=== PATIENT | female | born 1995 | race African-American/Black ===

== ENCOUNTER 2024-01-28 04:59 | Inpatient (IN) ==
[2024-01-28] MEDS: METOCLOPRAMIDE HCL INJ 5 MG/ML 2 ML VIAL IV STA (05:09)
[2024-01-28] MEDS: diphenhydrAMINE 50 MG/ML VIAL IV STA (05:09)
[2024-01-28] MEDS: SODIUM CHLORIDE 0.9% 1,000 ML IV ONE ×2 (05:10→05:32)
--- NOTE | 2024-01-28 05:14 | Emergency Department Note ---
ED Visit Note Alerted by nursing staff that they were concerned the patient is having a stroke. Patient is a 28-year-old female presenting with a headache. Patient states she has had a left-sided headache for the last 4 days. Reports the headache has not gotten better despite Tylenol and prednisone dosing. Patient is 8 weeks . She denies any vaginal bleeding or discharge. She states that the headache pain has gotten progressively worse over the last 4 days. Reports nausea and vomiting. Denies recent head injuries or chiropractic manipulation of her neck. She does report some left-sided weakness that has been present over the last 4 days and has gotten progressively worse. She denies any changes in vision. She reports this headache feels similar to her previous migraines, but reports it is more intense and has not gone away despite her normal treatments. Denies any chest pain or shortness of breath. Denies any fevers. On examination, the patient has left lower facial droop. She is significantly weaker in her left upper extremity as compared to her right. She has droop in both the left upper and left lower extremity. Patient is not a TNK candidate, given her last known well was 96 hours ago. I did discuss obtaining CT imaging with contrast with the patient. However, she reports she has an iodine allergy. She will go for Noncon CT scan of the head for further evaluation to rule out intracranial hemorrhage. .
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
[2024-01-28] MEDS: MAGNESIUM SULFATE / D5W 1 GM/100 ML BAG IV STA (05:30)
[2024-01-28 05:33] LABS: Basophils # (auto) 0.01 K/uL (0.00-0.20); Basophils % (auto) 0.2 %; Eosinophils # (auto) 0.02 K/uL (0.00-0.50); Eosinophils % (auto) 0.3 %; Hematocrit (blood only) 41.7 % (37.0-47.0); Hemoglobin 14.5 g/dl (12.0-16.0); Immature Granulocytes # (auto) 0.02 K/uL (0.01-0.20); Immature Granulocytes % (auto) 0.3 %; Lymphocytes # (auto) 2.45 K/uL (1.20-3.40); Lymphocytes % (auto) 42.5 %; Mean Corpuscular Hemoglobin 31.4 pg (25.0-34.0); Mean Corpuscular Hgb Conc 34.8 g/dL (32.0-36.0); Mean Corpuscular Volume 90.3 fL (80.0-100.0); Mean Platelet Volume 9.3 fL (9.4-12.4); Monocytes # (auto) 0.45 K/uL (0.11-0.59); Monocytes % (auto) 7.8 %; Neutrophils # (auto) 2.81 K/uL (1.40-6.50); Neutrophils % (auto) 48.9 %; Platelet Count 223 K/uL (130-400); RDW Coefficient of Variation 12.2 % (11.5-14.5); RDW Standard Deviation 39.8 fL (36.4-46.3); Red Blood Count 4.62 M/uL (4.20-5.40); White Blood Count 5.76 K/ul (4.8-10.8)
--- NOTE | 2024-01-28 05:39 | CT Scan Report ---
Exam(s): CT HEAD Without Contrast EXAM: CT Head Without Intravenous Contrast CLINICAL HISTORY: Reason for exam: headache; L sided weakness. TECHNIQUE: Axial computed tomography images of the head/brain without intravenous contrast. Automated exposure control was utilized for the study. A dose lowering technique was utilized adhering to the principles of ALARA. COMPARISON: 01/24/24 FINDINGS: Brain: Unremarkable. No hemorrhage. No significant white matter disease. No edema. Ventricles: Unremarkable. No ventriculomegaly. Bones/joints: Unremarkable. No acute fracture. Soft tissues: Unremarkable. Sinuses: Unremarkable as visualized. No acute sinusitis. Mastoid air cells: Unremarkable as visualized. No mastoid effusion. IMPRESSION: Normal head/brain CT. Communications: Call Doctor Stroke Electronically signed by: Marcellus Velasco MD 01/28/24 05:38 AM
[2024-01-28 05:48] LABS: Albumin Level 4.4 gm/dl (3.4-5.0); Anion Gap 9 (3-11); Bilirubin,Total 0.3 mg/dl (0.2-1.0); Calcium 9.4 mg/dl (8.6-10.3); Carbon Dioxide 25 mmol/L (21-32); Chloride 101 mmol/L (98-107); Magnesium 1.8 mg/dl (1.7-2.4); Potassium 3.4 mmol/L (3.5-5.1); Sodium 135 mmol/L (136-145)
[2024-01-28 05:49] LABS: Alanine Aminotransferase 8 U/L (7-52); Albumin Globulin Ratio 1.5 (0.9-2); Alkaline Phosphatase 40 U/L (34-104); Aspartate Aminotransferase 11 U/L (13-39); BUN Creatinine Ratio 19.5 (10-20); Blood Urea Nitrogen 8 mg/dl (6-23); Creatinine Clr Calc Pharmacy 176.4 ml/min; Est GFR (African American) > 150.0 ml/min; Est GFR (Non-African American) 140.6 ml/min; Globulin 2.9 gm/dl (2.5-4.0); Glucose 82 mg/dl (70-99(Fasting)); Lipase 10 U/L (11-82); Total Protein 7.3 gm/dl (6.0-8.3)
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
[2024-01-28 07:25] LABS: Adenovirus PCR Not Detected (NotDetected); Bordetella parapertussis PCR Not Detected (NotDetected); Bordetella pertussis PCR Not Detected (NotDetected); Chlamydia pneumoniae PCR Not Detected (NotDetected); Coronavirus 229E PCR Not Detected (NotDetected); Coronavirus CoV-2 (COVID19)PCR Not Detected (NotDetected); Coronavirus HKU1 PCR Not Detected (NotDetected); Coronavirus NL63 PCR Not Detected (NotDetected); Coronavirus OC43PCR Not Detected (NotDetected); Human Metapneumovirus PCR Not Detected (NotDetected); Influenza A PCR Not Detected (NotDetected); Influenza B PCR Not Detected (NotDetected); Mycoplasma pneumoniae PCR Not Detected (NotDetected); Parainfluenza Virus 1 PCR Not Detected (NotDetected); Parainfluenza Virus 2 PCR Not Detected (NotDetected); Parainfluenza Virus 3 PCR Not Detected (NotDetected); Parainfluenza Virus 4 PCR Not Detected (NotDetected); Respiratory Syncytial VirusPCR Not Detected (NotDetected); Rhinovirus/Enterovirus PCR Not Detected (NotDetected)
[2024-01-28 07:37] LABS: Appearance Urine Clear (Clear); Bilirubin Urine Negative (Negative); Blood Urine Negative (Negative); Color Urine Yellow; Glucose Urine UA Negative (Negative); Ketones Urine 1+ (Negative); Leukocyte Esterase Urine Negative (Negative); Nitrite Urine Negative (Negative); Protein Urine Negative (Negative); Specific Gravity Urine 1.007 (1.000-1.030); Urobilinogen Urine Negative (Negative)
[2024-01-28] MEDS ORDERED: DEXAMETHASONE SOD INJ 4 MG/ML VIAL IV SCH (09:00)
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
[2024-01-28] MEDS: POTASSIUM CHLORIDE 20 MEQ in LACTATED RINGER'S 1,000 ML IV SCH (09:17)
[2024-01-28] MEDS: ACETAMINOPHEN 500 MG TAB PO SCH (09:18)
[2024-01-28] MEDS: MAGNESIUM SULFATE / D5W 1 GM/100 ML BAG IV ONE (09:18)
[2024-01-28] MEDS: dexAMETHasone 4 MG in SYRINGE 0 ML IV SCH (09:19)
--- NOTE | 2024-01-28 11:28 | Electroencephalogram ---
EEG Procedure Note Date of Service January 28, 2024 Start / End Times Start Time: 10:56 AM End Time: 11:16 AM Referring Physician Yun History Seizure-like episode Home Medication List Medication Instructions Recorded Confirmed Type ondansetron HCl 4 mg tablet 4 mg PO Q8 PRN Nausea And Vomiting 01/24/24 01/24/24 History prednisone 20 mg tablet 20 mg PO DAILY 12 days #24 tabs 01/24/24 Rx Inpatient Medication List Acetaminophen (Acetaminophen 500 Mg Tab) 1,000 mg PO Q8H SELMA Stop: 02/27/24 08:13 Last Admin: 01/28/24 09:18 Dose: 1,000 mg Documented By: RIANNA Potassium Chloride 20 meq/ (Lactated Ringer's) 1,010 mls @ 125 mls/hr IV .Q8H5M SELMA Stop: 01/29/24 00:30 Last Admin: 01/28/24 09:17 Dose: 125 mls/hr Documented By: RIANNA Dexamethasone 4 mg/ Syringe 1 mls @ 1 mls/min IV DAILY SELMA Stop: 02/27/24 08:59 Last Admin: 01/28/24 09:19 Dose: 1 mls/min Documented By: RIANNA Discontinued Medications Diphenhydramine HCl (Diphenhydramine 50 Mg/Ml Vial) 50 mg IV NOW STA Stop: 01/28/24 05:03 Last Admin: 01/28/24 05:09 Dose: 50 mg Documented By: PAOLA Sodium Chloride (Nss) 1,000 mls @ 999 mls/hr IV .Q1H1M ONE Stop: 01/28/24 06:02 Last Infusion: 01/28/24 07:53 Dose: Infused Documented By: Admin: 01/28/24 05:10 Dose: 999 mls/hr Documented By: PAOLA Sodium Chloride (Nss) 1,000 mls @ 999 mls/hr IV .Q1H1M ONE Stop: 01/28/24 06:21 Last Infusion: 01/28/24 07:53 Dose: Infused Documented By: Admin: 01/28/24 05:32 Dose: 999 mls/hr Documented By: PAOLA Magnesium Sulfate/Dextrose (Magnesium Sulfate / D5w) 1 gm in 100 mls @ 100 mls/ hr IV NOW STA Stop: 01/28/24 06:20 Last Infusion: 01/28/24 06:32 Dose: Infused Documented By: Admin: 01/28/24 05:30 Dose: 100 mls/hr Documented By: PAOLA Magnesium Sulfate/Dextrose (Magnesium Sulfate / D5w) 1 gm in 100 mls @ 50 mls/hr IV ONE ONE Stop: 01/28/24 10:13 Last Infusion: 01/28/24 11:20 Dose: Infused Documented By: Admin: 01/28/24 09:18 Dose: 50 mls/hr Documented By: RIANNA Metoclopramide HCl (Metoclopramide Hcl Inj 5 Mg/Ml 2 Ml Vial) 10 mg IV NOW STA Stop: 01/28/24 05:03 Last Admin: 01/28/24 05:09 Dose: 10 mg Documented By: PAOLA Description This is a 21 electrode EEG with a single channel dedicated to limited EKG. The electrodes were placed in accordance with the International 10-20 system. There is a posterior dominant rhythm of 10 Hz which is symmetrically distributed and attenuates with eye opening. There is a normal anterior to posterior organization. Photic stimulation is unremarkable. Hyperventilation is not performed. There is a symmetric frontal beta rhythm. There is IV drip and movement artifact. There is no focal slowing. There are no epileptiform abnormalities. Interpretation Normal-appearing awake/drowsy EEG. [facility] EEG Procedure Codes Indication for Procedure (1) Seizure: Neurology Neurology: 95774 EEG include record awake & drowsy
[2024-01-28] MEDS: ONDANSETRON INJ 2 MG/ML 2 ML VIAL IV PRN (13:48)
--- NOTE | 2024-01-28 13:53 | Hospitalist Progress Note ---
Date of Service January 28, 2024 Assessment & Plan (1) Intractable migraine: Plan: Patient with persistent migraine ongoing for 5-6 days. Left sided numbness/tingling and weakness as well. Complicated migraine vs TIA/CVA. Patient is 8 weeks which limits some treatment options Biofire negative, lyme screen negative -Tylenol 1gm PO TID -Zofran PRN -Magnesium 1gm IV x 1 -Cold compresses -Dexamethasone 4mg IV qAM -Neurology consultation - brain MRI - no acute findings - EEG WNL Check MRV - received IV fluids x 2 L (2) Left-sided weakness: Plan: Complex migraine vs TIA/CVA vs seizure activity . Patient denies neurologic symptoms with prior migraine -MRI brain WITHOUT contrast: pending -Neurology consultation appreciated (3) Supervision of normal intrauterine in multigravida: Plan: Noted. Patient at 9 weeks. 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 If any vaginal bleeding, ultrasound for viability. Discussed with Dr. Malcolm, neurology Plan Dispo: Continued inpatient stay awaiting results of neurology testing DVT proh: SCDs, encourage ambulation Admission and Anticipated Discharge Date Admission Date: January 28, 2024 Supervising Physician Co-Signing Physician Notes PA Supervision Note: I did not personally see or examine the patient today, but I verified all harvey points of RYAN Bridges's assessment and plan with the following exceptions/additions: None Subjective Seen earlier this morning, resting in bed. Still describes left frontal headache, with spots in her vision on her left eye. Pain is slightly improved since admission Minimal appetite but nausea was controlled at the time Telemetry sinus rhythm in the 80s Review of Systems Review of Systems: All systems reviewed & are unremarkable except as noted in Subjective Physical Exam Physical Exam: General: NAD, VS as above Resp: normal respiratory effort, lungs clear to auscultation CV: RRR, no murmur, Abd: normal bowel sounds, non tender, soft Extremities: Moves all extremities, reports different sensation to left forehead and cheek area. 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 left- sided facial droop Neuro: A&O x3, Skin: intact, no lesions noted Results & Data Results & Data Vital Signs (Past 12 Hours) Vital Signs Temp Pulse Pulse Pulse Resp BP BP 01/28/24 12:20 36.9 C 95 H 16 112/64 01/28/24 09:57 87 01/28/24 08:16 36.7 C 96 H 16 111/76 01/28/24 07:47 98 H 18 107/70 01/28/24 06:51 80 19 01/28/24 06:42 80 18 01/28/24 06:36 84 34 H 01/28/24 06:30 119/80 01/28/24 06:27 84 22 01/28/24 06:03 96 H 19 01/28/24 06:00 128/80 01/28/24 05:57 85 18 01/28/24 05:42 89 20 01/28/24 05:30 113/72 01/28/24 05:30 94 H 22 01/28/24 05:27 87 8 L 01/28/24 05:15 106 H 24 01/28/24 05:14 103 H 01/28/24 05:02 01/28/24 05:01 36.4 C L 93 H 17 133/97 Pulse Ox O2 Del Method 01/28/24 12:20 98 Room Air 01/28/24 09:57 01/28/24 08:16 99 Room Air 01/28/24 07:47 100 Room Air 01/28/24 06:51 100 Room Air 01/28/24 06:42 100 01/28/24 06:36 99 Room Air 01/28/24 06:30 01/28/24 06:27 100 01/28/24 06:03 100 01/28/24 06:00 01/28/24 05:57 100 01/28/24 05:42 98 Room Air 01/28/24 05:30 01/28/24 05:30 99 01/28/24 05:27 99 01/28/24 05:15 100 01/28/24 05:14 01/28/24 05:02 100 Room Air 01/28/24 05:01 Room Air Laboratory Results CBC and chemistry reviewed PG Care Time/CCT Total # of Minutes Spent Total Time Spent with Patient: Total time spent is greater than 50% in coordination of care (as documented) at patient's floor/unit and/or counseling patient: Coding Level of Care Code None Diagnoses Intractable migraine G43.919 Left-sided weakness R53.1 Supervision of normal intrauterine in multigravida Z34.80
--- NOTE | 2024-01-28 14:10 | Magnetic Resonance Report ---
MRI OF THE BRAIN WITHOUT CONTRAST CLINICAL HISTORY: migraine, left sided weakness, ?CVA COMPARISON STUDY: Head CTs January 24, 2024 and January 28, 2024. TECHNIQUE: Utilizing a 1.5 Edwina magnet and dedicated coil, multiplanar, multiecho imaging of the bra in was performed without IV contrast. FINDINGS: This study is mildly compromised by motion artifact although is diagnostic. There are no fo ci of restricted diffusion to suggest acute infarct. No acute intracranial hemorrhage, midline shift or mass effect is present. Brain volume is normal. Ventricular system is normal. Basal cisterns are p atent. No extra-axial collections are present. Flow-voids for the major intracranial vessels are pres ent. No intracranial masses are identified on unenhanced exam. No parenchymal signal abnormality is i dentified. Calvarial signal is normal. No evidence for sinusitis. No mastoid fluid. IMPRESSION: 1. Unremarkable unenhanced MRI of the brain. 2. Study mildly compromised by motion artifact. ACT 112: Negative or not required by law. Electronically signed by: Blake Garland M.D. 01/28/2024 2:08 PM
--- NOTE | 2024-01-28 17:28 | Magnetic Resonance Report ---
MR venography head wo con HISTORY: left sided weakness TECHNIQUE: MRV of the brain was performed without contrast according to standard departmental protoco l. COMPARISON STUDY: Brain MRI 01/28/2024. FINDINGS: The visualized internal jugular veins, sigmoid sinuses, transverse sinuses, and superior sa gittal sinus appear patent. Small focal defects within the straight sinus and vein of Omid are likel y due to the motion artifact rather than thrombus. The internal cerebral veins appear patent. IMPRESSION: No evidence for dural venous sinus thrombosis. ACT 112: Negative or not required by law. Electronically signed by: Todd Dial M.D. 01/28/2024 5:26 PM
[2024-01-28] MEDS ORDERED: Nursing to Pharmacy Communication SCH (18:45)
[2024-01-29 06:55] LABS: Hematocrit (blood only) 34.1 % (37.0-47.0); Hemoglobin 11.7 g/dl (12.0-16.0); Mean Corpuscular Hemoglobin 31.1 pg (25.0-34.0); Mean Corpuscular Hgb Conc 34.3 g/dL (32.0-36.0); Mean Corpuscular Volume 90.7 fL (80.0-100.0); Mean Platelet Volume 9.4 fL (9.4-12.4); Platelet Count 200 K/uL (130-400); RDW Coefficient of Variation 12.1 % (11.5-14.5); RDW Standard Deviation 40.2 fL (36.4-46.3); Red Blood Count 3.76 M/uL (4.20-5.40); White Blood Count 6.49 K/ul (4.8-10.8)
[2024-01-29 07:13] LABS: Anion Gap 6 (3-11); BUN Creatinine Ratio 8.1 (10-20); Blood Urea Nitrogen 3 mg/dl (6-23); Calcium 8.2 mg/dl (8.6-10.3); Carbon Dioxide 25 mmol/L (21-32); Chloride 105 mmol/L (98-107); Creatinine Clr Calc Pharmacy 195.5 ml/min; Est GFR (African American) > 150.0 ml/min; Est GFR (Non-African American) 145.4 ml/min; Glucose 87 mg/dl (70-99(Fasting)); Potassium 3.6 mmol/L (3.5-5.1); Sodium 136 mmol/L (136-145)
--- NOTE | 2024-01-29 08:54 | Neurology Progress Note ---
Date of Service January 29, 2024 Assessment & Plan (1) Complicated migraine: Plan Improving complicated migraine. No evidence of stroke, hemorrhage, cerebral venous thrombosis, or other significant pathology on brain MRI/MRV. Normal EEG yesterday. Improving neurological examination although still seems to have some difficulty with the left visual field (late effect of migraine? No evidence of occipital lobe infarct or other pathology on brain MRI that would otherwise explain this apparent difficulty.) Patient may utilize Tylenol, Benadryl, and Zofran to manage her headaches going forward. I do expect improvement in her headaches as she enters the second and third trimester of her . If absolutely necessary, a low-dose of sumatriptan can be safely used in for acute management of migraine. If her headaches remain refractory, and/or she were to have further seizure-like episodes, it would not be unreasonable to start a low-dose of Keppra or lamotrigine. Either of these antiseizure medications are generally considered safe in and can be utilized when necessary. Furthermore, if she were to have additional seizure-like episodes, would recommend ambulatory EEG monitoring. Would also recommend outpatient ophthalmology evaluation for further assessment of her left visual field deficit. Patient may follow-up in neurology clinic in 2 to 3 weeks after discharge. Admission and Anticipated Discharge Date Admission Date: January 28, 2024 Subjective Follow-up regarding headache, weakness Patient complains of a low-grade left frontal headache this morning, no nausea or light sensitivity. She reports considerable improvement in her left-sided weakness. No further seizure-like episodes since the event on January 23. She is sitting up comfortably on the edge of her bed, about to eat breakfast. Results & Data Vital Signs (Past 12 Hours) Vital Signs Temp Pulse Pulse Resp BP Pulse Ox O2 Del Method 01/29/24 07:55 93 H 01/29/24 07:29 36.5 C 80 14 120/85 100 Room Air 01/29/24 03:02 36.8 C 86 16 108/75 98 Room Air 01/28/24 22:43 36.8 C 83 16 114/73 100 Room Air 01/28/24 22:21 76 Laboratory Results WBC 6.49, hemoglobin 11.7, hematocrit 34.1, platelet count 200, sodium 136, potassium 3.6, BUN 3, creatinine 0.37, glucose 87 Diagnostic Findings MRV of the brain completed yesterday normal. Exam (Neuro) Constitutional: healthy appearing; no acute distress Eyes: PERRL and EOM intact bilaterally; + abnormal visual field confrontation and no nystagmus Neurologic: Oriented to:: Person, Place and Time Memory: Short Term Intact and Remote Intact Attention: Span Intact and Concentration Intact Speech Fluency: negative Dysarthria or Dysfluency Speech Aphasia: negative Aphasia Fund of Knowledge: Current Events, Past History and Vocabulary Cranial Nerv es: Normal III, IV, , V, VII, VIII, IX, X, XI and XII; Abnorm II Motor Strength: Normal Lower Extremities and Normal Upper Extremities Muscle Bu lk/Involuntary Movements: No Involuntary Movements Sensation: Light Touch Intact and Proprioception Intact Coordination: negative Dysdiadochokinesia or Finger-Nose Abnormal Coding Level of Care Code 18385 SUB INP/OBS CARE 2/35MIN Diagnoses Complicated migraine G43.109 Time Spent (min) 40 Comment Total time includes patient contact, chart review, counseling, note preparation
--- NOTE | 2024-01-29 11:06 | Discharge Summary ---
Discharge Summary Date of Service January 29, 2024 Principal Dx & Hospital Course #1 = Principal Diagnosis (1) Intractable migraine: Patient with persistent migraine ongoing for 5-6 days. Left sided numbness/tingling and weakness as well. Complicated migraine vs TIA/CVA. Patient is 9 weeks which limits some treatment options Biofire negative, lyme screen negative -Tylenol 1gm PO TID -Magnesium 1gm IV x 1. Received IVF x 2L -Dexamethasone 4mg IV qAM - continued PO x2 days at discharge -Neurology consultation - brain MRI - no acute findings - EEG WNL - MRV no venous thrombus - Suspect complex migraine that is improving - Eye Dr Follow up - Follow up in Neurology clinic Patient feeling better day of discharge, still with migraine but manageable. Patient does state she stopped drinking caffeine ~ 3 weeks ago which may be contributing. Will discharge with reglan and steroids. Continue tylenol. PCP establish care arranged. (2) Left-sided weakness: Complex migraine vs TIA/CVA vs seizure activity . Patient denies neurologic symptoms with prior migraine -MRI brain WITHOUT contrast: no acute findings Weakness improving (3) Supervision of normal intrauterine in multigravida: Noted. Patient at 9 weeks. Plan Dispo: Discharge to home today with outpatient PCP, OB, neurology follow up arr anged. Patient to arrange eye doctor appointment and she is aware of this Notes For Next Care Provider Admitted with left sided weakness, facial droop and vision changes, also 9 weeks . Fortunately, no stroke, venous thrombus or acute findings on brain imagining. Thought to be complex migraine and symptoms have improved. Medication Changes From Visit PRN reglan Dexamethasone x 2 day recommend OTC Mag supplement Admission HPI Per Admitting Provider Mona Reyez is a 28yo female at 9 weeks gestation presenting with severe migraine. She has had headache ongoing since 01/24/24. She has been taking Tylenol with no relief. Was seen in the Er on 01/24/24 and had a negative CTscan of the head. She had a witnessed tonic-clonic seizure in the ER which lasted appx 30 seconds and was self limited. Patient was ultimately prescribed steroid taper and discharged home with instruction to followup with Neurology. She returns this evening with persistent headache as well as left sided numbness , tingling and weakness involving the face, arm and leg. She reports blurry vision in the left eye. Ongoing BRAMBILA involving the left hemicrania with nausea, photophobia and phonophobia. Symptoms are similar to prior migraine although now more severe - no prior neurologic symptoms. Patient reports persistent migraines with . She usually does not take any medications aside from Tylenol. In the ER she is afebrile, HD stable ER Course: Molly Mc NSS Discharge Exam General: NAD, VS as above Resp: normal respiratory effort, lungs clear to auscultation CV: RRR, no murmur, Abd: normal bowel sounds, non tender, soft Extremities: Moves all extremities, facial drip resolved. Sole Leveler strength equal Neuro: A&O x3, Skin: intact, no lesions noted Updated Medication List Medication Instructions Recorded Confirmed Type ondansetron HCl 4 mg tablet 4 mg PO Q8 PRN Nausea And Vomiting 01/24/24 01/28/24 History albuterol sulfate 90 mcg/actuation 1 puff inhalation QID PRN 01/28/24 01/28/24 History aerosol inhaler (ProAir HFA) WHEEZING/SOB acetaminophen 500 mg tablet 1,000 mg (2 x 500 mg) PO Q8H #30 01/29/24 Rx (Tylenol Extra Strength) tabs dexamethasone 4 mg tablet 4 mg PO DAILY #2 tabs 01/29/24 Rx metoclopramide HCl 10 mg tablet 10 mg PO Q6H PRN nausea and 01/29/24 Rx (Reglan) vomiting, worsening migrane 7 days #20 tabs Hospital Stay Data Consultations 01/28/24 05:54 ED Decision to Admit Stat 01/28/24 06:31 Consult Neurology Routine Diagnostic Imagining Performed Head CT 01/28/24 05:12 CR Exam(s): CT HEAD Without Contrast EXAM: CT Head Without Intravenous Contrast CLINICAL HISTORY: Reason for exam: headache; L sided weakness. TECHNIQUE: Axial computed tomography images of the head/brain without intravenous contrast. Automated exposure control was utilized for the study. A dose lowering technique was utilized adhering to the principles of ALARA. COMPARISON: 01/24/24 FINDINGS: Brain: Unremarkable. No hemorrhage. No significant white matter disease. No edema. Ventricles: Unremarkable. No ventriculomegaly. Bones/joints: Unremarkable. No acute fracture. Soft tissues: Unremarkable. Sinuses: Unremarkable as visualized. No acute sinusitis. Mastoid air cells: Unremarkable as visualized. No mastoid effusion. IMPRESSION: Normal head/brain CT. Communications: Call Doctor Stroke Electronically signed by: Marcellus Velasco MD 01/28/24 05:38 AM Brain MRI 01/28/24 07:35 MRI OF THE BRAIN WITHOUT CONTRAST CLINICAL HISTORY: migraine, left sided weakness, ?CVA COMPARISON STUDY: Head CTs January 24, 2024 and January 28, 2024. TECHNIQUE: Utilizing a 1.5 Edwina magnet and dedicated coil, multiplanar, multiecho imaging of the brain was performed without IV contrast. FINDINGS: This study is mildly compromised by motion artifact although is diagnostic. There are no foci of restricted diffusion to suggest acute infarct. No acute intracranial hemorrhage, midline shift or mass effect is present. Brain volume is normal. Ventricular system is normal. Basal cisterns are patent. No extra-axial collections are present. Flow-voids for the major intracranial vessels are present. No intracranial masses are identified on unenhanced exam. No parenchymal signal abnormality is identified. Calvarial signal is normal. No evidence for sinusitis. No mastoid fluid. IMPRESSION: 1. Unremarkable unenhanced MRI of the brain. 2. Study mildly compromised by motion artifact. ACT 112: Negative or not required by law. Electronically signed by: Blake Garland M.D. 01/28/2024 2:08 PM Head/Brain Mag Res Venography 01/28/24 15:38 MR venography head wo con HISTORY: left sided weakness TECHNIQUE: MRV of the brain was performed without contrast according to standard departmental protocol. COMPARISON STUDY: Brain MRI 01/28/2024. FINDINGS: The visualized internal jugular veins, sigmoid sinuses, transverse sinuses, and superior sagittal sinus appear patent. Small focal defects within the straight sinus and vein of Omid are likely due to the motion artifact rather than thrombus. The internal cerebral veins appear patent. IMPRESSION: No evidence for dural venous sinus thrombosis. ACT 112: Negative or not required by law. Electronically signed by: Todd Dial M.D. 01/28/2024 5:26 PM Pending Results Patient Have Any Pending Studies at Discharge: No Discharge Instructions Given to Patient (Per Discharging Provider) Ms. Reyez, You were hospitalized after having a migraine with visual changes and weakness. Thankfully we were able to rule out a stroke or venous thrombus in your brain and your EEG (looking for seizure activity) was normal. You were seen by neurology who thought this was a complex migraine and should continue to improve over time. You can have caffiene - about 200mcg daily during , this may have been contributing to your headache. Recommendations: * Continue taking tylenol 1000mg every 8 hours as needed for pain - do NOT take ibuprofen, Aleve, naproxen, etc in * Can use reglan together with benadryl 25mg to help stop migraine symptoms if they are worsening - I have sent in the prescription for reglan * You can continue to use zofran as needed, but would not take at the same time as the reglan * 2 more days of oral steroids (dexamethasone) - stop the previously prescribed prednisone. * Follow up with eye doctor - [facility] - Dr. Rasmussen number/info is listed above * Routine Follow up with OB - make sure you talk about this hospitalization at your next appointment * Daily oral magnesium supplement may help prevent headaches in - you can purchase this over the counter and follow the instructions on the bottle * No driving until seen by Neurology * We have established you with a PCP CONTACT YOUR PRIMARY CARE PROVIDER if you experience any of the following: Shortness of breath or difficulty breathing Fevers or chills Feeling tired with normal activity or experiencing dizziness or fainting Difficulty following your treatment plan, or difficulty taking medications CALL 911 OR GO TO THE EMERGENCY DEPARTMENT if you experience any of the following: Severe abdominal pain or nausea/vomiting Severe chest pain, or chest pain that radiates (moves) to your jaw or arm Sudden, severe shortness of breath or difficulty breathing Thank you for allowing us to participate in your care. Millie Bridgse PA-C Total Time Total Time Spent Total Time Spent (In Minutes): Time spend day of discharge 35 minutes including direct patient care, medication reconciliation, documentation, review of labs and images, and coordination of care. Supervising Physician Co-Signing Physician Notes PA Supervision Note: I personally saw and examined the patient. I verified all harvey points and agree with RYAN Bridges with the following exceptions and/or additions: S-Pt feelin gmuch improved, less weakness, headache improved, anxious for discharge. Has nausea but same as always with O- Vitals reviewed Gen: [AAOx3, NAD] HEENT: [anicteric sclerae, EOMI, mild left facial droop] CV: [RRR no mgr nl S1S2] Pulm: [CTAB no wcr] Neuro: [full strength throughout] A/P-28 yo female here with 9+3 wga and complex migraine. CVA and venous thrombosis ruled out, improving, stable for dc to home with Neuro follow up Coding Level of Care Code 89636 INP/OBS DISCH >30 MIN Diagnoses Intractable migraine G43.919 Left-sided weakness R53.1 Supervision of normal intrauterine in multigravida Z34.80
== END 2024-01-29 15:32 | disposition home or self-care (01) | DRG 103 ==
LOC: SUATTDRO → ED 04:59 → SUATTDRO 06:31 → 2N 06:31
DX: J45.909 Unspecified asthma, uncomplicated; Z83.3 Family history of diabetes mellitus; G81.94 Hemiplegia, unspecified affecting left nondominant side; R20.0 Anesthesia of skin; Z88.0 Allergy status to penicillin; G43.119 Migraine with aura, intractable, without status migrainosus; Z33.1 Pregnant state, incidental

== ENCOUNTER 2024-06-25 17:50 | Observation (INO) ==
[2024-06-25 18:03] VITALS: RESP 18
[2024-06-25] MEDS ORDERED: CALCIUM CARBONATE 500 MG CHEWABLE TAB PO PRN (18:44)
[2024-06-25] MEDS ORDERED: ACETAMINOPHEN 325 MG TAB PO PRN (18:44)
[2024-06-25] MEDS: LACTATED RINGER'S 1,000 ML IV ONE (19:00)
[2024-06-25 19:14] LABS: Basophils # (auto) 0.01 K/uL (0.00-0.20); Basophils % (auto) 0.1 %; Eosinophils # (auto) 0.01 K/uL (0.00-0.50); Eosinophils % (auto) 0.1 %; Hematocrit (blood only) 33.7 % (37.0-47.0); Hemoglobin 11.6 g/dl (12.0-16.0); Immature Granulocytes # (auto) 0.03 K/uL (0.01-0.20); Immature Granulocytes % (auto) 0.4 %; Lymphocytes # (auto) 0.36 K/uL (1.20-3.40); Lymphocytes % (auto) 4.6 %; Mean Corpuscular Hemoglobin 30.5 pg (25.0-34.0); Mean Corpuscular Hgb Conc 34.4 g/dL (32.0-36.0); Mean Corpuscular Volume 88.7 fL (80.0-100.0); Mean Platelet Volume 9.9 fL (9.4-12.4); Monocytes # (auto) 0.66 K/uL (0.11-0.59); Monocytes % (auto) 8.3 %; Neutrophils # (auto) 6.84 K/uL (1.40-6.50); Neutrophils % (auto) 86.5 %; Platelet Count 172 K/uL (130-400); RDW Standard Deviation 38.7 fL (36.4-46.3); White Blood Count 7.91 K/ul (4.8-10.8)
[2024-06-25 19:26] LABS: Albumin Globulin Ratio 1.4 (0.9-2); Albumin Level 3.6 gm/dl (3.4-5.0); Bilirubin,Total 0.5 mg/dl (0.2-1.0); Calcium 8.2 mg/dl (8.6-10.3); Creatinine Clr Calc Pharmacy 208.4 ml/min; Globulin 2.6 gm/dl (2.5-4.0); Potassium 3.1 mmol/L (3.5-5.1); Total Protein 6.2 gm/dl (6.0-8.3)
[2024-06-25 20:32] LABS: Amphetamines+Metham, Urine Neg (Neg); Barbiturates, Urine Neg (Neg); Benzodiazepine, Urine Neg (Neg); Cocaine, Urine Neg (Neg); Fentanyl, Urine Neg (Neg); MDMA (Ecstacy), Urine Neg (Neg); Marijuana, Urine Pos (Neg); Methadone, Urine Neg (Neg); Opiate, Urine Neg (Neg); Phencyclidine, Urine Neg (Neg)
[2024-06-25 20:40] LABS: Appearance Urine Clear (Clear); Bacteria Urine Automated None Seen (None Seen); Bilirubin Urine Negative (Negative); Blood Urine Negative (Negative); Color Urine Yellow; Glucose Urine UA Negative (Negative); Ketones Urine 4+ (Negative); Leukocyte Esterase Urine Trace (Negative); Mucus Urine Present (None Prsent); Nitrite Urine Negative (Negative); Protein Urine 1+ (Negative); RBC Urine Automated 0-2 /hpf (0-2); Specific Gravity Urine 1.022 (1.000-1.030); Urobilinogen Urine Negative (Negative); WBC Urine Automated 0-5 /hpf (0-5); pH Urine 6.5 (4.5-7.5)
[2024-06-25] MEDS: MoRPHine SULFATE 2 MG/ML CARP IV STA (20:59)
[2024-06-25] MEDS: ONDANSETRON INJ 2 MG/ML 2 ML VIAL IV PRN (20:59)
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
[2024-06-25 21:08] VITALS: BP 102/51; PULSE 123; TEMP 98.2
[2024-06-25] MEDS: POTASSIUM CHLORIDE CRTAB 20 MEQ TABCR PO STA (22:30)
--- NOTE | 2024-06-25 23:28 | Obstetrical Progress Note ---
Date of Service June 25, 2024 Assessment & Plan Admission and Anticipated Discharge Date Admission Date: June 25, 2024 Subjective feeling better after one dose of morphine and 2 liters of LR FHT's reassuring contractions now sporadic & mild has only voided a few cc's of urine since arrival in L&D awaiting CT scan results but doubt stone now because flank pain is almost resolved will continue to hydrate both orally and IV as I suspect the contractions and flank pain were because of severe dehydration I would like to see her void more prior to discharge Review of Systems Review of Systems: All systems reviewed & are unremarkable except as noted in HPI & below Physical Exam Constitutional: WD/WN, vitals as above Psychiatric: A+Ox3, euthymic affect Results & Data Vital Signs (Past 12 Hours) Vital Signs Temp Pulse Resp BP 06/25/24 21:07 123 H 06/25/24 21:07 102/51 L 06/25/24 21:05 98.2 F 06/25/24 18:10 118 H 95/50 L 06/25/24 18:02 118 H 95/50 L 06/25/24 18:00 18 06/25/24 18:00 98.4 F 18 PG Care Time/CCT Total # of Minutes Spent Total Time Spent with Patient: Total time spent is greater than 50% in coordination of care (as documented) at patient's floor/unit and/or counseling patient: Coding Level of Care Code 91788 SUB INP/OBS CARE 1/25MIN
--- NOTE | 2024-06-25 23:52 | CT Scan Report ---
Exam(s): CT ABDOMEN + PELVIS Without Contrast EXAM: CT Abdomen and Pelvis Without Intravenous Contrast CLINICAL HISTORY: 30 weeks - Left flank Pain. TECHNIQUE: Axial computed tomography images of the abdomen and pelvis without intravenous contrast. CTDI is 17.92 mGy and DLP is 820.38 mGy-cm. Automated exposure control was utilized for the study. A dose lowering technique was utilized adhering to the principles of ALARA. COMPARISON: Gallbladder ultrasound 05/27/2024 FINDINGS: Lung bases: Unremarkable. No mass. No consolidation. ABDOMEN: Liver: Unremarkable. Gallbladder and bile ducts: Unremarkable. No calcified stones. No ductal dilation. Pancreas: Unremarkable. No ductal dilation. Spleen: Unremarkable. No splenomegaly. Adrenals: Unremarkable. No mass. Kidneys and ureters: Unremarkable. No hydronephrosis or visualized nephrolithiasis. Stomach and bowel: Unremarkable. No obstruction. No mucosal thickening. PELVIS: Appendix: No findings to suggest acute appendicitis. Bladder: Unremarkable. No stones. Reproductive: Single intrauterine gestation in the cephalic presentation. ABDOMEN and PELVIS: Intraperitoneal space: Unremarkable. No free air. No significant fluid collection. Bones/joints: No acute fracture. No dislocation. Soft tissues: Unremarkable. Vasculature: Unremarkable. No abdominal aortic aneurysm. Lymph nodes: Unremarkable. No enlarged lymph nodes. IMPRESSION: 1. No hydronephrosis or visualized nephrolithiasis. 2. Single intrauterine gestation in the cephalic presentation. Electronically signed by: Maritza Waldrop MD 06/25/24 23:51 PM
== END 2024-06-26 01:00 | disposition home or self-care (01) ==
LOC: OPB 17:50 → 4S1 17:50

== ENCOUNTER 2024-07-01 12:02 | Observation (INO) ==
[2024-07-01] MEDS: SODIUM CHLORIDE 0.9% 1,000 ML IV ONE (12:15)
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
[2024-07-01] MEDS ORDERED: SODIUM CHLORIDE 0.9% 500 ML IV ONE (13:00)
[2024-07-01 13:11] LABS: Hematocrit (blood only) 36.2 % (37.0-47.0); Hemoglobin 12.4 g/dl (12.0-16.0); Mean Corpuscular Hemoglobin 30.2 pg (25.0-34.0); Mean Corpuscular Hgb Conc 34.3 g/dL (32.0-36.0); Mean Corpuscular Volume 88.1 fL (80.0-100.0); Mean Platelet Volume 9.5 fL (9.4-12.4); Platelet Count 174 K/uL (130-400); RDW Coefficient of Variation 12.2 % (11.5-14.5); RDW Standard Deviation 39.5 fL (36.4-46.3); Red Blood Count 4.11 M/uL (4.20-5.40); White Blood Count 4.12 K/ul (4.8-10.8)
[2024-07-01 13:24] LABS: Albumin Globulin Ratio 1.3 (0.9-2); Albumin Level 3.4 gm/dl (3.4-5.0); BUN Creatinine Ratio 6.7 (10-20); Bilirubin,Total 0.7 mg/dl (0.2-1.0); Calcium 8.2 mg/dl (8.6-10.3); Creatinine Clr Calc Pharmacy 185.8 ml/min; Globulin 2.7 gm/dl (2.5-4.0); Potassium 3.4 mmol/L (3.5-5.1); Total Protein 6.1 gm/dl (6.0-8.3)
[2024-07-01 13:37] LABS: Thyroid Stimulating Hormone 0.467 uIu/ml (0.300-4.500)
[2024-07-01 13:41] LABS: T4 Free Thyroxine 0.86 ng/dl (0.61-1.60)
[2024-07-01] MEDS: SODIUM CHLORIDE 0.9% 1,000 ML IV SCH (13:42)
[2024-07-01] MEDS: ACETAMINOPHEN 500 MG TAB PO PRN (13:42)
[2024-07-01] MEDS: MoRPHine SULFATE 2 MG/ML CARP IV STA (13:43)
[2024-07-01 13:53] LABS: ALC (manual) 2.47 K/uL (1.2-3.4); ANC (manual) 1.48 K/uL (1.4-6.5); Lymphocytes # (manual) 1.77 K/uL (1.2-3.4); Lymphocytes % (manual) 43 %; Monocytes # (manual) 0.16 K/uL (0.11-0.59); Monocytes % (manual) 4 %; Neutrophils # (manual) 1.48 K/uL (1.40-6.50); Neutrophils % (manual) 36 %; Reactive Lymphocytes % (manual) 17 %
--- NOTE | 2024-07-01 14:05 | Communication Note ---
Date of Service: July 01, 2024 On further chart review abd/pelvis CT--appendix is visualized and not inflammed, aorta/vasculature look normal [place] screen in December was negative. cbc is wnl except a wbc count slighly low at 4.3, diff nl, not anemic cmp is wnl, K 3.4, nl lfts thyroid functions nl chest xr on 06/26 wnl. workup continues She is doing better at this point, calmer. giving her lavender aromatherapy. Has gotten tylenol and morphine. Is currently resting. Fetus category one
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
[2024-07-01 14:58] LABS: C Reactive Protein 0.74 mg/dl (0-0.5)
[2024-07-01] MEDS ORDERED: CALCIUM CARBONATE 500 MG CHEWABLE TAB PO PRN (16:03)
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
[2024-07-01 16:33] LABS: Appearance Urine Clear (Clear); Bacteria Urine Automated None Seen (None Seen); Bilirubin Urine Negative (Negative); Blood Urine Negative (Negative); Cast Urine Automated 0-2 /lpf (0-2); Color Urine Dark Yellow; Epithelial Cell Urine Auto 0-2 /hpf (0-2); Glucose Urine UA Negative (Negative); Ketones Urine 4+ (Negative); Leukocyte Esterase Urine Negative (Negative); Nitrite Urine Negative (Negative); Protein Urine 1+ (Negative); RBC Urine Automated 0-2 /hpf (0-2); Specific Gravity Urine 1.016 (1.000-1.030); Urobilinogen Urine Positive (Negative); WBC Urine Automated 0-5 /hpf (0-5); pH Urine >= 9.0 (4.5-7.5)
[2024-07-01] MEDS: ONDANSETRON INJ 2 MG/ML 2 ML VIAL ONE (16:42)
[2024-07-01] MEDS: POTASSIUM CHLORIDE CRTAB 20 MEQ TABCR PO STA (16:44)
[2024-07-01] MEDS: MAGNESIUM SULFATE / D5W 1 GM/100 ML BAG IV ONE (16:46)
[2024-07-01 17:15] LABS: Amphetamines+Metham, Urine Neg (Neg); Barbiturates, Urine Neg (Neg); Benzodiazepine, Urine Neg (Neg); Cocaine, Urine Neg (Neg); Fentanyl, Urine Neg (Neg); MDMA (Ecstacy), Urine Neg (Neg); Marijuana, Urine Pos (Neg); Methadone, Urine Neg (Neg); Opiate, Urine Neg (Neg); Phencyclidine, Urine Neg (Neg)
[2024-07-01] MEDS: PLASMA-LYTE A 1,000 ML IV SCH (18:47)
[2024-07-01] MEDS: SODIUM CHLORIDE 0.9% 500 ML IV ONE (19:07)
[2024-07-01] MEDS: MAGNESIUM OXIDE 400 MG TAB PO SCH (21:16)
[2024-07-02] MEDS: ONDANSETRON INJ 2 MG/ML 2 ML VIAL IV PRN (01:48)
--- NOTE | 2024-07-02 06:09 | Obstetrical Progress Note ---
Date of Service July 02, 2024 Assessment & Plan (1) Abdominal pain: Plan: Per medicine consult, primary diagnoses leaning toward MSK pain from thoracic spine with dehydration and depletion of electrolytes from nausea and vomiting. Pt has been given IVF as well as repeated Mg and calcium. Awaiting CMP, CBC, Mg level. -Awaiting labs for urine porphobilinogen, carboxypro and coprophyr results -Continue ondansetron PRN for nausea -Continue IV tylenol or morphine PRN for pain. (2) Migraines: Plan: Has sumatriptan for onset of migraines. -Will monitor symptoms (3) Hyperthyroidism: Plan: TSH and Free T4 is within normal values. Pt is not currently taking medications for thyroid condition. (4) with 31 completed weeks gestation: Plan: Pt reporting no leakage of fluid, mild and inconsistent BH contractions. Hourly movements of baby. -Monitor FTH and toco as needed (5) Asthma: Plan: Wheezing heard in upper lung taylor on physical exam -Ordered albuterol sulfate 90mcg 2 puffs q4h PRN Admission and Anticipated Discharge Date Admission Date: July 01, 2024 Supervising Physician Co-Signing Physician Notes Resident Physician Supervision Note: I interviewed and examined the patient. Discussed with Dr. Matt and agree with findings and plan as documented in the note. Any exceptions or clarifications are listed here: Patient appears to be resting comfortably in bed, she can change position without difficulty. NOtes her pain is currently at baseline rates 7-8/10. She has not had any further exacerbations. Notes good fm. no lof/vb. Notes occasional contractions, not increased. Does note when she has a pain episode she gets more contractions. She is voiding but still looking lukasz. Still having issues with n/v and poor po. REplacing electrolytes. Appreciate hospitalist input. Overall will need a plan for pain management. Would she be a candidate for muscle relaxants like flexeril? Discussed again that we have ruled out the concerning things that could be affecting her or the baby and now it is about managing the pain episodes and knowing that when she has one, what the likely source is and that she is not going to or be harmed by them. Discussed use of belly support garment. She notes she has one at home and it has not really helped overall. Notes additionally heat is not helpful. May need to consider a short script for narcotic for when she has breakthrough pain. urine studies from her last admission have returned and negative. Have additional studies pending as collected while having an acute episode. Documented By: Lita Man MD, FACOG Subjective Pt is 28 yo who presented 07/01/24 with severe abdominal/torso pain. Pt had recent abdominal CT due to ED visit for similar symptoms, no acute findings at that time. Pt had FHT and tocometer which showed reassurance of health as well as no impressive, regular contractions. Pt was found to be significantly dehydrated and depleted in magnesium and other electrolytes. Pt was given NSS bolus 1L as well as plasmalyte, Magnesium, and calcium. Pt was given ondansetron for nausea and morphine and Tylenol for pain. This morning, Pt reports she continues with mid thoracic pain that radiates to her poeterior buttocks and thighs. She denies weakness or numbness/tingling at her legs. Pt endorses constant migraines and SOB due to asthma and growing fetus putting pressure on her lungs. Pt states she has been able to eat a little bit, but continues with nausea and vomiting. Ambulation:In room Voiding:voiding, small amount and lukasz in color Passing gas: yes BM: No Diet tolerance:regular diet Current pain level: 8 /10 improved with morphine or Tylenol Resting comfortably this morning in NAD. Denies BRAMBILA, CP, Diarrhea, calf pain/swelling. Review of Systems Review of Systems: As per HPI Physical Exam Constitutional: WD/WN, vitals as above Respiratory: normal respiratory effort Auscultation: + wheezes (expiratory in upper lung taylor) Cardiovascular: RRR, no murmur, no edema Gastrointestinal (Abdomen): normal bowel sounds, soft, nontender, no hepatosplenomegaly Neurologic: PERRL, EOMI, accommodation nl, no face palsy, no dysarthria Moving all 4 extremities on command Psychiatric: A+Ox3, euthymic affect Results & Data Vital Signs (Past 12 Hours) Vital Signs Temp Pulse Resp BP Pulse Ox O2 Del Method 07/02/24 01:50 36.5 C 86 16 113/69 96 Room Air 07/01/24 21:10 36.3 C L 85 18 106/67 100 Room Air Resident Activity Tracking Resident Involvement: Resident Care Provided Care Provided: Adult Hospital Medicine
--- NOTE | 2024-07-02 07:07 | Hospitalist Progress Note ---
Date of Service July 02, 2024 Assessment & Plan (1) Piriformis muscle pain: Plan: b/l, R>L; likely a result of spasm due to static positioning of pt and baby - daily OMT treatment of piriformis muscles by encouraging the contracted muscles to relax - encourage daily movement and stretching as tolerated (2) Nausea and vomiting in : Plan: recently has taken tamiflu, possible gastritis, otherwise no nausea/vomiting since early - famotidine, tums, and mag hydroxide to coat and soothe irritated stomach - zofran prn (3) Abdominal pain: Plan: as above - porphyria labs pending - CMP morning (4) Migraines: Plan: Monitor symptoms (5) with 31 completed weeks gestation: Plan: Monitor FTH and toco Admission and Anticipated Discharge Date Admission Date: July 01, 2024 Supervising Physician Co-Signing Physician Notes I personally examined the patient and verified all harvey points of history and exam, discussed case, and agree with decision making with Dr Lynn still having nausea and vomitinghas only eaten a tiny bit of applesauce today. In discussion of progression of nausea and vomiting, while she was reasonably sick early in , this had faded to occasional vomiting, not even daily, and certainly nothing that was affecting her life. Then somewhere around the time may be slightly before the time she tested positive for flu she started throwing up more, and feels that the medications she was taking for flu were also very upsetting on her stomach. This has resulted in the last couple of weeks essentially having intractable nausea and vomiting. She does have some stomach pain. Has not had a bowel movement for 2 days either. In regards to her back pain, seems to be bilateral mid to low back pain and she notes that it really seems to come from her hips, and playing the outside of her hips in the neighborhood of her greater trochanters. No fevers chills or sweats. No bowel or bladder symptoms other than what was noted above vitals noted, in general she is pleasant but fatigued no distress. HEENT normocephalic atraumatic mucous membranes moist. Breathing unlabored no accessory muscle use good effort. Abdomen shows a gravid uterus fitting with her dates, she does have epigastric tenderness without guarding rebound or rigidity, maybe a little bit of left lower abdominal tenderness but no guarding rebound or rigidity. Biomechanical/musculoskeletal exam shows right greater than left pelvic musculature in the region of her piriformis being high tone, tender, decreased range of motionLAS and post isometric relaxation done with some improvement, patient tolerated well, and OMT maneuvers seemed to reproduce her pain rather directly intractable nausea and vomitingseems to be multifactorial but most recently and most intolerably seems to have been related to the fluid, and now probably Tamiflu side effect compounded by some degree of residual gastritis. I suspect also a degree of constipation at play. Will put her on Pepcid 20 mg twice daily, magnesium hydroxide before every mealand hopefully between the 2 that should help quiet the gastritis symptoms and the magnesium hydroxide hopefully will help with the constipation as well. Discussed with patient does not seem safe to discharge while she still unable to take much of anything meaningfully p.o. back painworrisome pathology appears to been ruled out rather definitively (certainly back/flank pain tied together with nausea and vomiting would be renal in origin until proven otherwisebut with lack of infection or stone type symptoms/etc. it seems this has been proven otherwise quite definitively) and obstetrical causes appear to have been ruled out as well. Beyond what has been ruled out, her symptoms and exam fit extremely well with biomechanical strain pattern driven by her piriformis dysfunctionthis gets very common late in pregnancyshe seems to have bilateral dysfunction but right worse than left. OMT as above. Asked to be called when her is here so that I can show him stretches to mimic OMT, we will continue to work on her while she is in the hospital, and then if she needs ongoing OMT as an outpatient, and excellent DO physician is in the same office as her primary care nurse practitioner. otherwise as above Subjective Patient was seen and evaluated at bedside, appearing in no acute distress. States she is mainly having lower back pain that radiates to her abdomen and b/l hips, sometimes a bit more down legs, notes it can last for 2-4hrs at a time. Confirms baby has been moving regularly, notes some lateral positions baby is in that make her feel sore numb/tingling down her legs Note her appetite is very poor and has not been able to tolerate much PO as it has been making her throw up, eating applesauce and drinking liquids very slowly on encounter. Denies any recent significant vaginal fluid or blood loss. Endorses she has been urinating and having regular bowel movements. Denies recent fever, body aches, chills, sweats, headache, dizziness, lightheadedness, chest pain, SOB, pain/swelling in lower extremities. Review of Systems Review of Systems: As per HPI Physical Exam Physical Exam: General: A&Ox3, not appearing in acute distress HEENT: Anicteric sclerae, EOM intact. Hearing grossly intact Cardiovascular: RRR, +s1/s2, no m/r/g. Pulmonary: clear to auscultation b/l; no increased work of breathing, no wheezes/rales/rhonchi GI: gravid; hypoactive BS, mild epigastric tenderness to palpation MSK: 5/5 strength in all extremities - mild-moderate tenderness to palpation of lower thoracic / upper lumbar paraspinal muscles skin: no rashes, lesions, or sores on inspection Results & Data Results & Data Vital Signs (Past 12 Hours) Vital Signs Temp Pulse Resp BP Pulse Ox O2 Del Method 07/02/24 01:50 36.5 C 86 16 113/69 96 Room Air 07/01/24 21:10 36.3 C L 85 18 106/67 100 Room Air Laboratory Results Abnormal lab results 07/02/24 Range/Units 07:46 WBC 3.81 L (4.8-10.8) K/ul RBC 3.59 L (4.20-5.40) M/uL Hgb 10.9 L (12.0-16.0) g/dl Hct 32.8 L (37.0-47.0) % MPV 9.2 L (9.4-12.4) fL Chloride 108 H (98-107) mmol/L BUN 2 L (6-23) mg/dl Creatinine 0.37 L (0.6-1.2) mg/dl BUN/Creatinine Ratio 5.4 L (10-20) Calcium 7.6 L (8.6-10.3) mg/dl Total Protein 5.5 L (6.0-8.3) gm/dl Albumin 2.8 L (3.4-5.0) gm/dl Resident Activity Tracking Resident Involvement: Resident Care Provided Care Provided: Adult [facility]
[2024-07-02 08:08] LABS: Hematocrit (blood only) 32.8 % (37.0-47.0); Hemoglobin 10.9 g/dl (12.0-16.0); Mean Corpuscular Hemoglobin 30.4 pg (25.0-34.0); Mean Corpuscular Hgb Conc 33.2 g/dL (32.0-36.0); Mean Corpuscular Volume 91.4 fL (80.0-100.0); Mean Platelet Volume 9.2 fL (9.4-12.4); Platelet Count 167 K/uL (130-400); RDW Coefficient of Variation 12.4 % (11.5-14.5); RDW Standard Deviation 41.1 fL (36.4-46.3); Red Blood Count 3.59 M/uL (4.20-5.40); White Blood Count 3.81 K/ul (4.8-10.8)
[2024-07-02 08:25] LABS: Albumin Level 2.8 gm/dl (3.4-5.0); BUN Creatinine Ratio 5.4 (10-20); Bilirubin,Total 0.5 mg/dl (0.2-1.0); Calcium 7.6 mg/dl (8.6-10.3); Magnesium 2.1 mg/dl (1.7-2.4); Potassium 3.7 mmol/L (3.5-5.1); Total Protein 5.5 gm/dl (6.0-8.3)
[2024-07-02 08:26] LABS: Globulin 2.7 gm/dl (2.5-4.0)
[2024-07-02] MEDS: ALBUTEROL HFA 8 GM INHALER INH PRN (10:23)
[2024-07-02] MEDS: SODIUM CHLORIDE 0.9% 500 ML IV SCH (10:26)
[2024-07-02 10:51] VITALS: RESP 18
[2024-07-02 11:57] VITALS: O2SAT 100
[2024-07-02] MEDS: FAMOTIDINE 20 MG TAB PO ONE (14:09)
[2024-07-02] MEDS: MAGNESIUM HYDROXIDE SUSP 30 ML UDC PO SCH (16:12)
--- NOTE | 2024-07-02 18:05 | Billing Data ---
Date of Service July 02, 2024 Coding Level of Care Code 56667 SUB INP/OBS CARE
[2024-07-02] MEDS: SODIUM CHLORIDE 0.9% 1,000 ML IV SCH (18:10)
[2024-07-02] MEDS: FAMOTIDINE 20 MG TAB PO SCH (22:02)
[2024-07-03 00:40] VITALS: BP 106/66; PULSE 73; TEMP 98.1
--- NOTE | 2024-07-03 05:34 | Obstetrical Progress Note ---
Date of Service July 03, 2024 Assessment & Plan (1) Abdominal pain: Plan: Per medicine consult, primary diagnoses leaning toward MSK pain from thoracic spine with dehydration and depletion of electrolytes from nausea and vomiting. Pt has been given IVF as well as repeated Mg and calcium. Awaiting CMP, CBC, Mg level. -Awaiting labs for urine porphobilinogen, carboxypro and coprophyr results -Continue ondansetron PRN for nausea -Continue PO tylenol and OMT pain. (2) Migraines: Plan: Has sumatriptan for onset of migraines. -Will monitor symptoms (3) Hyperthyroidism: Plan: TSH and Free T4 is within normal values. Pt is not currently taking medications for thyroid condition. (4) with 31 completed weeks gestation: Plan: Pt reporting no leakage of fluid, mild and inconsistent BH contractions. Hourly movements of baby. -Monitor FTH and toco as needed (5) Asthma: Plan: Wheezing heard in upper lung taylor on physical exam -Ordered albuterol sulfate 90mcg 2 puffs q4h PRN Admission and Anticipated Discharge Date Admission Date: July 01, 2024 Supervising Physician Co-Signing Physician Notes Resident Physician Supervision Note: I was present with Dr. Matt during the history and exam. I discussed the case with the resident and agree with the findings and plan as documented in the note. Any exceptions or clarifications are listed here: Doing better today, eating/drinking ok at this point. Pain has improved after OMM. Obstetrically, doing well. Will appreciate medicine team recommendations and discharge planning as they see appropriate. Documented By: Shiloh Decker, DO Subjective Pt is 28 yo who presented 07/01/24 with severe abdominal/torso pain. Pt had recent abdominal CT due to ED visit for similar symptoms, no acute findings at that time. Pt had FHT and tocometer which showed reassurance of health as well as no impressive, regular contractions. Pt was found to be significantly dehydrated and depleted in magnesium and other electrolytes. Pt was given NSS bolus 1L as well as plasmalyte, Magnesium, and calcium. Pt was given ondansetron for nausea and morphine and Tylenol for pain. This morning, pt reports she has been able to eat and keep food down yesterday. She continues with baseline nausea. Her back pain improved with OMT yesterday. Rates pain at 7/10 at right hip greater than left. Ambulation:In room Voiding:voiding normally Passing gas: yes BM: No Diet tolerance:regular diet Current pain level: 7 /10 improved with morphine or Tylenol Resting comfortably this morning in NAD. Denies BRAMBILA, CP, Diarrhea, calf pain/swelling. Review of Systems Review of Systems: As per HPI Physical Exam Constitutional: WD/WN, vitals as above Respiratory: normal respiratory effort, lungs clear to auscultation normal respiratory effort Auscultation: no wheezes Cardiovascular: RRR, no murmur, no edema Gastrointestinal (Abdomen): normal bowel sounds, soft, nontender, no hepatosplenomegaly Neurologic: PERRL, EOMI, accommodation nl, no face palsy, no dysarthria Psychiatric: A+Ox3, euthymic affect Results & Data Vital Signs (Past 12 Hours) Vital Signs Temp Pulse Resp BP Pulse Ox O2 Del Method 07/03/24 00:30 36.7 C 73 18 106/66 100 Room Air 07/02/24 20:00 Room Air 07/02/24 20:00 36.4 C L 92 H 18 109/66 100 Room Air Resident Activity Tracking Resident Involvement: Resident Care Provided Care Provided: Adult Hospital Medicine
[2024-07-03 06:39] LABS: Hematocrit (blood only) 34.3 % (37.0-47.0); Hemoglobin 11.5 g/dl (12.0-16.0); Mean Corpuscular Hemoglobin 30.5 pg (25.0-34.0); Mean Corpuscular Hgb Conc 33.5 g/dL (32.0-36.0); Mean Platelet Volume 9.7 fL (9.4-12.4); Platelet Count 202 K/uL (130-400); RDW Coefficient of Variation 12.4 % (11.5-14.5); RDW Standard Deviation 41.1 fL (36.4-46.3); Red Blood Count 3.77 M/uL (4.20-5.40); White Blood Count 4.91 K/ul (4.8-10.8)
--- NOTE | 2024-07-03 07:13 | Hospitalist Progress Note ---
Date of Service July 03, 2024 Assessment & Plan (1) Piriformis muscle pain: Plan: b/l, R>L; likely a result of spasm due to static positioning of pt and baby - daily OMT treatment of piriformis muscles by encouraging the contracted muscles to relax - encourage daily movement and stretching as tolerated (2) Abdominal pain: Plan: as above - porphyria labs pending - CMP morning (3) Migraines: Plan: Monitor symptoms (4) with 31 completed weeks gestation: Plan: Monitor FTH and toco Admission and Anticipated Discharge Date Admission Date: July 01, 2024 Supervising Physician Co-Signing Physician Notes I personally examined the patient and verified all harvey points of history and exam, discussed case, and agree with decision making with Dr Lynn feeling better and would like to go home. Back pain improved. Eating better. Vitals noted, in general she is awake and alert pleasant no distress. HEENT normocephalic atraumatic mucous membranes moist. Breathing unlabored no accessory muscle use good effort. Skin without rashes pallor or icterus. Neuro without focal deficits. Intractable nausea vomitingappears to be gastritisprobably flu followed by medication side effect to Tamiflu, followed by simply gastritis perpetuating itself/causing the nauseaimproved quite nicely on twice daily famotidine and milk of magnesia before every mealdiscussed with her continuing this at home as long as she needs, but also that it is really going to largely be for symptomatic control so obviously once she is feeling better she can wean things back. Discussed that the milk of magnesia will play a dual role coating her stomach before meals as well as helping with constipation. She expressed good understanding of ongoing management of this aspect back pain/biomechanical dysfunctionimproved nicely with OMT. Taught stretches, was not present so was not able to show him directly had a stretcher, but I demonstrated for her how he would be able to help her as well. Will also reach out to PCP and let her know that OMT was quite helpfulso that if pain persists an internal referral can be made to the DO physician in her office. Otherwise as above Subjective Patient was seen and evaluated at bedside, appearing in no acute distress. Had just gotten back into bed from bathroom, states she has been up and walking around more which has been helping her feel less stiff. Endorses she has been able to keep her food down since lunch yesterday 07/02/24, was able to eat about half of her breakfast this morning. Denies any vomiting since day prior. States her lower back and upper buttock pain has been decreasing, especially on the L side, R still bothering her a bit. Also notes baby has moved away from putting pressure on her hips, feels more comfortable. Denies any recent significant vaginal fluid or blood loss. Endorses she has been urinating and having regular bowel movements. Amenable to OMT treatment to piriformis muscles during encounter, tolerated with good result b/l. Denies recent fever, body aches, chills, sweats, headache, dizziness, lightheadedness, chest pain, SOB, pain/swelling in lower extremities. Review of Systems Review of Systems: As per HPI Physical Exam Physical Exam: General: A&Ox3, not appearing in acute distress HEENT: Anicteric sclerae, EOM intact. Hearing grossly intact Cardiovascular: RRR, +s1/s2, no m/r/g. Pulmonary: clear to auscultation b/l; no increased work of breathing, no wheezes/rales/rhonchi GI: gravid; hypoactive BS, mild epigastric tenderness to palpation MSK: 5/5 strength in all extremities - mild tenderness to palpation of lower thoracic / upper lumbar paraspinal muscles - mild-moderate tenderness to palpation of b/l upper buttocks in piriformis region R>L skin: no rashes, lesions, or sores on inspection Results & Data Results & Data Vital Signs (Past 12 Hours) Vital Signs Temp Pulse Resp BP Pulse Ox O2 Del Method 07/03/24 00:30 36.7 C 73 18 106/66 100 Room Air 07/02/24 20:00 Room Air 07/02/24 20:00 36.4 C L 92 H 18 109/66 100 Room Air Laboratory Results Abnormal lab results 07/03/24 Range/Units 06:05 RBC 3.77 L (4.20-5.40) M/uL Hgb 11.5 L (12.0-16.0) g/dl Hct 34.3 L (37.0-47.0) % Chloride 112 H (98-107) mmol/L BUN 2 L (6-23) mg/dl Creatinine 0.41 L (0.6-1.2) mg/dl BUN/Creatinine Ratio 4.9 L (10-20) Calcium 8.2 L (8.6-10.3) mg/dl Total Protein 5.4 L (6.0-8.3) gm/dl Albumin 2.9 L (3.4-5.0) gm/dl Resident Activity Tracking Resident Involvement: Resident Care Provided Care Provided: Adult [facility]
[2024-07-03 09:04] LABS: Albumin Globulin Ratio 1.2 (0.9-2); Albumin Level 2.9 gm/dl (3.4-5.0); BUN Creatinine Ratio 4.9 (10-20); Bilirubin,Total 0.4 mg/dl (0.2-1.0); Calcium 8.2 mg/dl (8.6-10.3); Creatinine Clr Calc Pharmacy 203.9 ml/min; Globulin 2.5 gm/dl (2.5-4.0); Potassium 4.1 mmol/L (3.5-5.1); Total Protein 5.4 gm/dl (6.0-8.3)
--- NOTE | 2024-07-03 18:16 | Billing Data ---
Date of Service July 03, 2024 Coding Level of Care Code 11090 SUB INP/OBS CARE
[2024-07-04 10:48] LABS: Marijuana Quant, GCMS Urine 392 ng/mL (<5)
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
== END 2024-07-03 11:11 | disposition home or self-care (01) ==
LOC: OPB 12:02 → 4E2 12:02 → 4S1 12:03 → 4E2 17:32

== ENCOUNTER 2024-09-02 07:51 | Inpatient (IN) ==
[2024-09-02] MEDS ORDERED: OXYTOCIN 30 UNITS/NSS 30 UNITS/500 ML BAG IV PRN ×2 (09:36→17:45)
[2024-09-02] MEDS ORDERED: LIDOCAINE 1% LOCAL 20 ML VIAL INFIL PRN (09:36)
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
[2024-09-02 10:26] LABS: Hematocrit (blood only) 36.8 % (37.0-47.0); Hemoglobin 11.6 g/dl (12.0-16.0); Mean Corpuscular Hemoglobin 27.1 pg (25.0-34.0); Mean Corpuscular Hgb Conc 31.5 g/dL (32.0-36.0); Mean Platelet Volume 9.7 fL (9.4-12.4); Platelet Count 220 K/uL (130-400); RDW Coefficient of Variation 13.5 % (11.5-14.5); Red Blood Count 4.28 M/uL (4.20-5.40); White Blood Count 4.84 K/ul (4.8-10.8)
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
--- OUTSIDE RECORDS SUMMARY | 2024-09-02 10:34 | External Medical Summary | Summary of Care ---
Author Name Unknown Organization [facility] Address [address] [place] [address] Phone [phone] Care Team Providers Care Polysomnography Technician Name Role Phone Unavailable Primary Care Provider Unavailabl e Encounter Details Date Type Department Care Team ([facility] st Contact Info) Description 08/17/2024 Result Scan Unspecified Department Dandre Byrd MD [address] [place] [address] <No scans attached> Allergies Active Allergy Reactions Criticality Noted Date Comments Iodine Anaphylaxis,Rash High 08/17/2019 Penicillins Anaphylaxis High 08/17/2019 documented as of this encounter (statuses as of 08/18/2024) Medications Famotidine 40 MG Oral Tablet (Pepcid) [...] by mouth in the morning. 09/30/2023 Active Dulera 200-5 MCG/ACT Inhalation Aerosol (Mometasone-For moterol) Inhale 2 Puffs by mouth in the morning and 2 Puffs before bedtime. 08/22/2023 Active Oseltamivir Phosphate 75 MG Oral Capsule (Tamiflu) TAKE ONE CAPSULE BY MOUTH TWICE DAILY X5DAYS 06/27/2024 Active Sertraline HCl 50 MG Oral Tablet (Zoloft) Take 1 Tablet by mouth in the morning. Active predniSONE 50 MG Oral Tablet (Deltasone) Take 1 Tablet by mouth in the morning. 08/05/2023 Active documented as of this encounter (statuses as of 08/18/2024) Active Problems Problem Noted Date Diagnosed Date [...] as of this encounter (statuses as of 08/18/2024) Social History Tobacco Use Types Packs/Day Years [...] money to get more. Never true 08/04/2024 [place] Depression Scale Answer Date Recorded [place] Depression Scale Total 8 08/04/2024 The thought [...] Care Team (Late st Contact Info) Description 08/18/2024 11:30 AM EST Office Visit Gynecology/Obstetric [facility] [address] [place] [address] Jaclyn Gomez CRNP [address] [place] [address] Encounter for supervision of other normal , third trimester*; Hypothyroid in , antepartum; Abnormal thyroid blood test; Seizure-like activity (HCC); History of premature rupture of membranes (PPROM) 08/25/2024 11:30 AM EST Office Visit Gynecology/Obstetric [facility] [address] [place] [address] Jaclyn Gomez CRNP [address] [place] [address] Health Maintenance Due Date Last Done Comments Depression Screening 2007 HIV Screening 12/12/2010 Hepatitis C Screening 12/12/2013 Hepatitis B Vaccine (1 of 3 - 19+ 3-dose series) 12/12/2014 Pap Smear 12/12/2016 COVID-19 Vaccine (2023-2 5 season) 2024 Influenza Vaccine (FLU shot) [...] Not on filedocumented as of this encounter Procedures Procedure Name Priority Date/Time Associated Diagnosis Comments OUTSIDE LAB RESULTS 08/17/2024 documented in this encounter Results * OUTSIDE LAB RESULTS (08/17/2024) 08/17/2024 us Dandre Byrd MD LABORATORY Final Result documented in this encounter
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
--- OUTSIDE RECORDS SUMMARY | 2024-09-02 10:34 | External Medical Summary | Summary of Care ---
Author Name Unknown Organization [facility] Address [address] [place] [address] Phone [phone] Care Team Providers Care Inclusion Specialist Name Role Phone Unavailable Primary Care Provider Unavailabl e Reason for Visit * Reason Comments Return Visit Encounter Details Date Type Department Care Team ([facility] Contact Info) Description 08/18/2024 11:30 AM EST Office Visit Gynecology/Obstetric s Marc Flores [address] [place] [address] Backer, GRACIA Lucero [address] [place] [id number] Encounter for supervision of other normal , [...] money to get more. Never true 08/04/2024 Stevinson Depression Scale Answer Date Recorded Stevinson Depression Scale Total 8 08/04/2024 The thought [...] 11:05 AM EST 38w2d Was seen at [facility] yesterday with ctx, neg Amnisure. Ctx persist [...] 08/25/2024 11:30 AM EST Office Visit Gynecology/Obstetrics [facility] [address] [place] [address] Jaclyn Gomez CRNP [address] [place] [id number] Health Maintenance Due Date Last Done Comments [...]
[2024-09-02] MEDS: SODIUM CHLORIDE 0.9% 1,000 ML IV SCH (10:37)
[2024-09-02] MEDS: OXYTOCIN 30 UNITS/NSS 30 UNITS/500 ML BAG IV PRN (10:37)
--- NOTE | 2024-09-02 14:43 | Obstetrical Progress Note ---
Date of Service September 02, 2024 Assessment & Plan Admission and Anticipated Discharge Date Admission Date: September 02, 2024 Subjective Patient is reevaluated She has been feeling ctxs q 3-5 min, pain level is 10 /10 Does not want epidural SROM'ed at clear VE was 4 per her nurse around noon FHR categ I Oxytocin is at 8 miu/min VE: 4/ 60%/ -2, bulgin bag, AROM'ed yellow to greenish ? fluid Continue to monitor closely Results & Data Vital Signs (Past 12 Hours) Vital Signs Temp Pulse Resp BP 09/02/24 14:35 88 09/02/24 14:35 123/74 09/02/24 13:45 85 09/02/24 13:45 106/57 L 09/02/24 13:30 20 09/02/24 13:30 20 09/02/24 12:45 36.9 C 09/02/24 12:42 83 09/02/24 12:42 110/62 09/02/24 12:30 20 09/02/24 12:30 20 09/02/24 12:00 18 09/02/24 12:00 18 09/02/24 11:43 71 09/02/24 11:43 106/66 09/02/24 11:00 20 09/02/24 11:00 20 09/02/24 10:35 77 09/02/24 10:35 118/71 09/02/24 10:22 20 09/02/24 10:22 20 09/02/24 10:00 18 09/02/24 10:00 18 09/02/24 09:30 18 09/02/24 09:30 18 09/02/24 08:18 36.6 C 20 09/02/24 08:06 83 124/81 09/02/24 08:05 36.6 C
--- NOTE | 2024-09-02 16:00 | Obstetrical Progress Note ---
Date of Service September 02, 2024 Assessment & Plan Admission and Anticipated Discharge Date Admission Date: September 02, 2024 Subjective Patient is very painful, feels pressure VE; 5/ 70%/ -1 to -2 FHR categ I Mallow ctxs q 2-3 min, Oxytocin is at 10 miu/min Counseled about epidural, she will think about it. Results & Data Vital Signs (Past 12 Hours) Vital Signs Temp Pulse Resp BP 09/02/24 15:11 89 09/02/24 15:11 127/65 09/02/24 15:00 20 09/02/24 15:00 20 09/02/24 14:35 88 09/02/24 14:35 123/74 09/02/24 14:30 22 09/02/24 14:30 22 09/02/24 13:45 85 09/02/24 13:45 106/57 L 09/02/24 13:30 20 09/02/24 13:30 20 09/02/24 12:45 36.9 C 09/02/24 12:42 83 09/02/24 12:42 110/62 09/02/24 12:30 20 09/02/24 12:30 20 09/02/24 12:00 18 09/02/24 12:00 18 09/02/24 11:43 71 09/02/24 11:43 106/66 09/02/24 11:00 20 09/02/24 11:00 20 09/02/24 10:35 77 09/02/24 10:35 118/71 09/02/24 10:22 20 09/02/24 10:22 20 09/02/24 10:00 18 09/02/24 10:00 18 09/02/24 09:30 18 09/02/24 09:30 18 09/02/24 08:18 36.6 C 20 09/02/24 08:06 83 124/81 09/02/24 08:05 36.6 C
[2024-09-02] MEDS ORDERED: HYDROCORTISONE ACETATE 25 MG SUPP PR PRN (17:45)
[2024-09-02] MEDS ORDERED: bisacodyL 10 MG SUPP PR PRN (17:45)
[2024-09-02] MEDS ORDERED: oxyCODONE/ACETAMINOPHEN 5mg/325mg TAB PO PRN (17:45)
[2024-09-02] MEDS ORDERED: ACETAMINOPHEN 325 MG TAB PO PRN (17:45)
[2024-09-02] MEDS: ePHEDrine sulfate 50 MG/ML AMP ONE (17:50)
[2024-09-02] MEDS: fentaNYL citrate PF 100 MCG/2 ML VIAL ONE (17:50)
[2024-09-02] MEDS: LIDOCAINE 2%/EPINEPHRINE 1:200,000 20 ML PF ONE (17:51)
[2024-09-02] MEDS: SODIUM CHLORIDE 0.9% PF INJ 10 ML VIAL ONE (17:51)
[2024-09-02] MEDS: fentANYL 2 MCG/ML BUPIVacaine 0.125%-NSS 100ML BAG ONE (17:51)
[2024-09-02] MEDS: BUPIVACAINE 0.25% PF 30 ML VIAL ONE (17:51)
--- NOTE | 2024-09-02 17:54 | Delivery Summary ---
Vaginal Delivery Summary Date of Service September 02, 2024 Vaginal Delivery Summary Patient was having pressure and urge to push. Cervix was 8 cm and head at +1 station. Bladder was full. Patient never gave urine sample since admission. FHR was having decelerations to 70-80's. Sh was placed in dorsal lithotomy Position and the bladder was straight cath into a cup. It was about 100 mL of dark urine. After verbal consent from the patient it was sent for screening. Then after next 2 contractions patient was found to be fully dilated and desired to push. She pushed through 2 contractions and delivered the head and then shoulders with minimal traction. there was a nuchal cord around neck x 1 which was reduced. The baby was handed off to the mother. The cord was clampedx2 and cut. The vagina and perineum were checked and found to have small First-degree left labial laceration. patient was very uncomfortable and was avoiding any kind of touch to her vulvar vagina. She wanted it not to be repaired. The placenta was delivered spontaneously as intact and complete. Labia was hemostatic. Fundus was firm, she passed small clots with fundal massage. QBL was 150 mL The baby was a viable female infant, Apgars 8/9, the weight is pending The mother and the baby tolerated the procedure well. No complications happened and I was present during whole procedure.
[2024-09-02] MEDS: OXYTOCIN 10 UNITS/ML VIAL ONE (18:06)
[2024-09-02] MEDS: OXYTOCIN 10 UNITS/ML 10ML VIAL IM ONE (18:39)
[2024-09-02] MEDS: DIPHTHER/TETAN/PERTUS Vaccine (Tdap, Adol/Adult) 0.5mL IM ONE (18:39)
[2024-09-02] MEDS: MEASLES, MUMPS & RUBELLA VIRUS VACCINE (MMR) 0.5ML VIAL SQ ONE (18:39)
[2024-09-02 18:44] LABS: Amphetamines+Metham, Urine Neg (Neg); Barbiturates, Urine Neg (Neg); Benzodiazepine, Urine Neg (Neg); Cocaine, Urine Neg (Neg); Fentanyl, Urine Neg (Neg); MDMA (Ecstacy), Urine Neg (Neg); Marijuana, Urine Pos (Neg); Methadone, Urine Neg (Neg); Opiate, Urine Neg (Neg); Phencyclidine, Urine Neg (Neg)
[2024-09-02] MEDS ORDERED: ALBUTEROL HFA 8 GM INHALER INH PRN (22:07)
[2024-09-02] MEDS: DOCUSATE SODIUM 100 MG CAP PO SCH (22:09)
[2024-09-02] MEDS: METHYLERGONOVINE MALEATE 0.2 MG TAB PO SCH (22:09)
[2024-09-02] MEDS ORDERED: ONDANSETRON 4 MG OD TAB PO PRN (22:12)
[2024-09-02] MEDS: BENZOCAINE 20% SPRY 85 APPLN/85 GM CAN EXT PRN (22:19)
[2024-09-02] MEDS: ACETAMINOPHEN 325 MG TAB PO PRN (23:30)
--- NOTE | 2024-09-03 00:35 | Obstetrical Progress Note ---
Date of Service September 03, 2024 Assessment & Plan Admission and Anticipated Discharge Date Admission Date: September 02, 2024 Subjective Patient is seen to discuss UDS results + for Marijuana, confirmation pending It was + in January, May and June 2024, all in her chart. She states she does not use Marihuana and was not aware of positive results from before. Asking whether it can be false positive, she has asthma and uses Albuterol inhaler and different herbs, she lives [place] building with college kids and can it be from air. Able to get up and use the BR, voided 600 ml Vital Signs Height Weight Body Mass Index Blood Pressure Blood Pressure Position Temperature Temperature Source 5 ft 5 in 76.204 kg 27.9 100/68 Lying 36.6 C Oral 09/02/24 08:18 09/02/24 08:18 09/02/24 08:18 09/02/24 21:30 09/02/24 21:30 09/02/24 21:30 09/02/24 21:30 Pulse Rate Respiratory Rate Pulse Oximetry 68 16 99 09/02/24 21:30 09/02/24 21:30 09/02/24 21:30 Lab Results 09/02/24 09/02/24 Range/Units 09:51 17:21 WBC 4.84 (4.8-10.8) K/ul RBC 4.28 (4.20-5.40) M/uL Hgb 11.6 L (12.0-16.0) g/dl Hct 36.8 L (37.0-47.0) % MCV 86.0 (80.0-100.0) fL MCH 27.1 (25.0-34.0) pg MCHC 31.5 L (32.0-36.0) g/dL RDW Std Deviation 42.0 (36.4-46.3) fL RDW Coeff of Justine 13.5 (11.5-14.5) % Plt Count 220 (130-400) K/uL MPV 9.7 (9.4-12.4) fL TSH 1.262 (0.300-4.500) uIu/ml Urine Opiates Screen Neg (Neg) Ur Methadone, Qual Neg (Neg) Urine Fentanyl Screen Neg (Neg) Urine Barbiturates Neg (Neg) Ur Phencyclidine (PCP) Neg (Neg) U Amphetamin/Meth Scrn Neg (Neg) MDMA (Ecstasy) Screen Neg (Neg) U Benzodiazepines Scrn Neg (Neg) Ur Cocaine Metabolite Neg (Neg) U Marijuana (THC) Screen Pos H (Neg) Treponema pallidum Ab Negative (Negative) Abd soft, fundus below U, lochia some on pad but free flow with fundal message, perineum intact, no swelling Continue to monitor closely Desires d/c after 24 hours Results & Data Vital Signs (Past 12 Hours) Vital Signs Temp Pulse Pulse Resp BP BP Pulse Ox 09/02/24 21:30 36.6 C 68 16 100/68 99 09/02/24 19:50 18 09/02/24 19:31 89 09/02/24 19:31 127/75 09/02/24 19:22 89 09/02/24 19:22 127/70 09/02/24 19:20 18 09/02/24 19:07 80 09/02/24 19:07 99/69 L 09/02/24 18:50 36.9 C 18 09/02/24 18:35 18 09/02/24 18:32 86 09/02/24 18:32 122/68 09/02/24 18:20 20 09/02/24 18:17 79 09/02/24 18:17 137/68 09/02/24 18:05 20 09/02/24 18:05 90 09/02/24 18:05 132/70 09/02/24 17:50 20 09/02/24 17:49 85 09/02/24 17:49 142/86 H 09/02/24 17:37 78 09/02/24 17:37 112/75 09/02/24 17:30 20 09/02/24 17:30 20 09/02/24 17:00 24 09/02/24 17:00 24 09/02/24 16:36 88 09/02/24 16:36 105/66 09/02/24 16:00 22 09/02/24 16:00 22 09/02/24 16:00 22 09/02/24 16:00 36.9 C 22 09/02/24 15:30 20 09/02/24 15:30 20 09/02/24 15:11 89 09/02/24 15:11 127/65 09/02/24 15:00 20 09/02/24 15:00 20 09/02/24 14:35 88 09/02/24 14:35 123/74 09/02/24 14:30 22 09/02/24 14:30 22 09/02/24 13:45 85 09/02/24 13:45 106/57 L 09/02/24 13:30 20 09/02/24 13:30 20 09/02/24 12:45 36.9 C 09/02/24 12:42 83 09/02/24 12:42 110/62 O2 Del Method 09/02/24 21:30 Room Air 09/02/24 19:50 09/02/24 19:31 09/02/24 19:31 09/02/24 19:22 09/02/24 19:22 09/02/24 19:20 09/02/24 19:07 09/02/24 19:07 09/02/24 18:50 09/02/24 18:35 09/02/24 18:32 09/02/24 18:32 09/02/24 18:20 09/02/24 18:17 09/02/24 18:17 09/02/24 18:05 09/02/24 18:05 09/02/24 18:05 09/02/24 17:50 09/02/24 17:49 09/02/24 17:49 09/02/24 17:37 09/02/24 17:37 09/02/24 17:30 09/02/24 17:30 09/02/24 17:00 09/02/24 17:00 09/02/24 16:36 09/02/24 16:36 09/02/24 16:00 09/02/24 16:00 09/02/24 16:00 09/02/24 16:00 09/02/24 15:30 09/02/24 15:30 09/02/24 15:11 09/02/24 15:11 09/02/24 15:00 09/02/24 15:00 09/02/24 14:35 09/02/24 14:35 09/02/24 14:30 09/02/24 14:30 09/02/24 13:45 09/02/24 13:45 09/02/24 13:30 09/02/24 13:30 09/02/24 12:45 09/02/24 12:42 09/02/24 12:42
[2024-09-03] MEDS: IBUPROFEN 600 MG TAB PO PRN (01:42)
[2024-09-03 06:00] LABS: Hematocrit (blood only) 35.5 % (37.0-47.0); Hemoglobin 11.7 g/dl (12.0-16.0); Mean Corpuscular Hemoglobin 27.7 pg (25.0-34.0); Mean Corpuscular Volume 84.1 fL (80.0-100.0); Mean Platelet Volume 9.4 fL (9.4-12.4); Platelet Count 200 K/uL (130-400); RDW Coefficient of Variation 13.6 % (11.5-14.5); RDW Standard Deviation 41.6 fL (36.4-46.3); Red Blood Count 4.22 M/uL (4.20-5.40); White Blood Count 11.89 K/ul (4.8-10.8)
[2024-09-03] MEDS: FERROUS SULFATE 325 MG TAB PO SCH (08:46)
[2024-09-03] MEDS: PRENATAL VITAMIN 1 TAB PO SCH (08:46)
[2024-09-03] MEDS: FAMOTIDINE 20 MG TAB PO SCH (08:47)
[2024-09-03 11:46] VITALS: O2SAT 99
[2024-09-03 17:01] VITALS: BP 106/63; PULSE 82; RESP 16; TEMP 97.7
[2024-09-03] MEDS ORDERED: bisacodyL 5 MG TABEC PO SCH (20:00)
== END 2024-09-03 19:25 | disposition home health service (06) | DRG 807 ==
LOC: 4S1 07:51 → 4E2 20:39